=== PATIENT | male | born 1945 | race Caucasian/White ===

== ENCOUNTER 2021-06-15 16:05 | Emergency (ER) | payer MEDICARE, SELFPAY ==
[2021-06-15] VITALS (10 sets, daily range): BP systolic 184–214; BP diastolic 93–108; PULSE 78–85; RESP 18–25; TEMP 37.1; O2SAT 92–96
--- NOTE | 2021-06-15 16:15 | DI.RAD.S_ITS ---
PROCEDURE: XR CHEST 1V INDICATIONS: chest pain TECHNIQUE: One view of the chest was acquired. COMPARISON: None. FINDINGS: Surgical changes and devices: None. Lungs and pleura: Lungs are clear. No pleural effusions or pneumothorax. No focal consolidation or pulmonary mass. There is bibasilar atelectasis. Mediastinum: The heart is enlarged. The aorta is tortuous. Bones and chest wall: No suspicious bony lesions. Overlying soft tissues appear unremarkable. IMPRESSION: 1. Cardiomegaly. 2. Bibasilar atelectasis. Dictated by: Layton Tran M.D. on 06/15/2021 at 16:27 Approved by: Layton Tran M.D. on 06/15/2021 at 16:28
[2021-06-15 16:32] LABS: Add Manual Diff / Slide Review NO; Basophils Absolute Auto 0 /uL (0-100); Basophils Percent Auto 0.8 % (0-2); Eosinophils Absolute Auto 200 /uL (0-450); Eosinophils Percent Auto 4.2 % (2-4); Hematocrit 41.8 % (41-53); Hemoglobin 13.8 g/dL (13.5-17.5); Lymphocytes Absolute Auto 1200 /uL (1100-4500); Lymphocytes Percent Auto 21.3 % (25-40); Mean Corpuscular HGB Conc 33.1 % (30-36); Mean Corpuscular Hemoglobin 32.9 PG (26-34); Mean Corpuscular Volume 99.3 fL (80-100); Monocytes Absolute Auto 500 /uL (0-900); Monocytes Percent Auto 8.7 % (3-14); Neutrophils Absolute Auto 3800 /uL (1500-7000); Platelet Count 235 X10^3/uL (150-400); Red Blood Cell Count 4.21 X10^6/uL (4.5-5.9); Red Cell Distribution Width 14.6 % (11.6-14.8); White Blood Cell Count 5.8 X10^3/uL (4.5-11.0)
[2021-06-15 16:52] LABS: Alanine Aminotransferase 6 IU/L (<50); Albumin 4.3 g/dL (3.5-5.0); Albumin Globulin Ratio 1.7 (1.0-2.8); Alkaline Phosphatase 75 U/L (38-126); Aspartate Aminotransferase 20 IU/L (17-59); BUN Creatinine Ratio 24.8 (6-22); Bilirubin Total 0.5 mg/dL (0.2-1.3); Blood Urea Nitrogen 30 mg/dL (9-20); Calcium 8.7 mg/dL (8.4-10.2); Carbon Dioxide 22 mmol/L (22-32); Chloride 112 mmol/L (98-107); Creatine Kinase 42 U/L (55-170); Estimated Glomerular Filt Rate 58.1 mL/min (>60); Globulin 2.5 g/dL (1.7-4.1); Glucose 183 mg/dL (80-110); HEMOLYSIS 25 (0-50); Lipase 68 U/L (23-300); Potassium 4.5 mmol/L (3.4-5.1); Sodium 141 mmol/L (137-145); Total Protein 6.8 g/dL (6.3-8.2)
--- NOTE | 2021-06-15 16:54 | ED_ITS ---
HPI - Altered Mental Status <Jordin Gann PA-C - Last Filed: 06/16/21 12:10> General Chief Complaint: Hypertension Stated Complaint: low blood pressure, not feeling well Time Seen by Provider: 06/15/21 16:23 Source: patient Mode of arrival: Ambulatory History of Present Illness HPI narrative: Marvin presents today with chief complaint of increased weakness, fatigue, and elevated blood pressure that has been getting worse over the last 2 months. He has Parkinson's and frequently feels weak but this is worse than normal. He denies any recent dose adjustments for any of his medications or any new medications. However, 1 year ago he says that he self adjusted his blood pressure medication by cutting his losartan from 100 mg daily to 50 mg daily. He denies stopping any medications recently. He denies having increased shortness of breath with movement. He denies any chest pain, diaphoresis, nausea, vomiting, diarrhea, abdominal pain, for back pain, rash, headache, vision changes or any other acute concerns or complaints at this time. Related Data Allergies Allergy/AdvReac Type Severity Reaction Status Date / Time No Known Drug Allergies Allergy Verified 06/15/21 16:51 Review of Systems <Jordin Gann PA-C - Last Filed: 06/16/21 12:10> Review of Systems Narrative: As per HPI Exam <Jordin Gann PA-C - Last Filed: 06/16/21 12:10> Narrative Exam Narrative: Exam Narrative: Const General: cooperative, healthy appearing, comfortable, no acute distress, well developed and well groomed Nutritional Appearance: average body habitus Orientation: alert and oriented x3 HENMT Head: normal to inspection and atraumatic Ears: hearing grossly normal bilaterally Nose: external nose normal and nares normal Face and sinus: normal facial exam Neck Neck: normal visual inspection and supple Resp Effort & Inspection: normal respiratory effort, able to speak in complete sentences, no audible wheezes, not labored, no nasal flaring and no respiratory distress, clear to auscultation bilaterally Cardiac Regular rate, regular rhythm, no obvious murmur noted. GI Nondistended, nontender to palpation, normal bowel sounds No CVA tenderness Neuro General: alert, oriented x3, mildly ataxic gait, tone normal and moves all extremities Cognition: normal cognition Speech: speech normal Psych Appearance: grossly normal and well kempt Mental Status: mental status grossly normal Speech and Movement: speech normal, spastic upper and lower extremity movement noted. Mood: congruent mood Affect: normal affect Initial Vital Signs Initial Vital Signs: Vital Signs Temperature 98.7 F 06/15/21 16:10 Pulse Rate 82 06/15/21 16:10 Respiratory Rate 18 06/15/21 16:10 Blood Pressure 214/108 H 06/15/21 16:10 Pulse Oximetry 94 06/15/21 16:10 <Behzad Almaguer DO - Last Filed: 06/17/21 10:17> Initial Vital Signs Initial Vital Signs: Vital Signs Temperature 98.7 F 06/15/21 16:10 Pulse Rate 82 06/15/21 16:10 Respiratory Rate 18 06/15/21 16:10 Blood Pressure 214/108 H 06/15/21 16:10 Pulse Oximetry 94 06/15/21 16:10 Course <Jordin Gann PA-C - Last Filed: 06/16/21 12:10> Orders Ordered: ED Orders 06/15/21 16:15 XR chest 1V Stat EKG-12 Lead Stat 06/15/21 16:20 Thyroid Stimulating Hormone Stat 06/15/21 16:25 Complete Blood Count AUTO DIFF Stat Comprehensive Metabolic Panel Stat Lipase Stat NT-proBNP (BNP-Adult 18+) Stat Troponin & CK Cardiac Panel Stat 06/15/21 17:49 COVID19 -Nasal swab/Pre-Proc Stat Vital Signs Vital signs: Vital Signs - 8 hr 06/15/21 16:10 06/15/21 16:15 06/15/21 16:16 Temperature 98.7 F Pulse Rate 82 85 Respiratory Rate 18 24 Blood Pressure 214/108 H Pulse Oximetry 94 93 94 06/15/21 16:30 06/15/21 17:13 06/15/21 17:14 Temperature Pulse Rate 84 83 82 Respiratory Rate 24 22 25 H Blood Pressure 186/93 H 195/95 H Pulse Oximetry 94 94 95 06/15/21 17:30 06/15/21 17:49 06/15/21 18:00 Temperature Pulse Rate 84 79 78 Respiratory Rate 24 23 23 Blood Pressure 184/94 H 186/96 H Pulse Oximetry 96 94 92 06/15/21 18:30 Temperature Pulse Rate 79 Respiratory Rate 24 Blood Pressure Pulse Oximetry 94 <Behzad Almaguer DO - Last Filed: 06/17/21 10:17> Orders Ordered: ED Orders 06/15/21 16:15 XR chest 1V Stat EKG-12 Lead Stat 06/15/21 16:20 Thyroid Stimulating Hormone Stat 06/15/21 16:25 Complete Blood Count AUTO DIFF Stat Comprehensive Metabolic Panel Stat Lipase Stat NT-proBNP (BNP-Adult 18+) Stat Troponin & CK Cardiac Panel Stat 06/15/21 17:49 COVID19 -Nasal swab/Pre-Proc Stat Vital Signs Vital signs: Vital Signs - 8 hr 06/15/21 16:10 06/15/21 16:15 06/15/21 16:16 Temperature 98.7 F Pulse Rate 82 85 Respiratory Rate 18 24 Blood Pressure 214/108 H Pulse Oximetry 94 93 94 06/15/21 16:30 06/15/21 17:13 06/15/21 17:14 Temperature Pulse Rate 84 83 82 Respiratory Rate 24 22 25 H Blood Pressure 186/93 H 195/95 H Pulse Oximetry 94 94 95 06/15/21 17:30 06/15/21 17:49 06/15/21 18:00 Temperature Pulse Rate 84 79 78 Respiratory Rate 24 23 23 Blood Pressure 184/94 H 186/96 H Pulse Oximetry 96 94 92 06/15/21 18:30 Temperature Pulse Rate 79 Respiratory Rate 24 Blood Pressure Pulse Oximetry 94 MDM - Altered Mental Status <Jordin Gann PA-C - Last Filed: 06/16/21 12:10> Lab Data Result diagrams: 06/15/21 16:25 06/15/21 16:25 Labs: Lab Results 06/15/21 06/15/21 06/15/21 Range/Units 16:20 16:25 16:25 WBC 5.8 (4.5-11.0) X10^3/uL RBC 4.21 L (4.5-5.9) X10^6/uL Hgb 13.8 (13.5-17.5) g/dL Hct 41.8 (41-53) % MCV 99.3 (80-100) fL MCH 32.9 (26-34) PG MCHC 33.1 (30-36) % RDW 14.6 (11.6-14.8) % Plt Count 235 (150-400) X10^3/uL Neut % (Auto) 65.0 (50-75) % Lymph % (Auto) 21.3 L (25-40) % [place] % (Auto) 8.7 (3-14) % Eos % (Auto) 4.2 H (2-4) % Baso % (Auto) 0.8 (0-2) % Neut # (Auto) 3800 (9653-4574) /uL Lymph # (Auto) 1200 (5691-1548) /uL [place] # (Auto) 500 (0-900) /uL Eos # (Auto) 200 (0-450) /uL Baso # (Auto) 0 (0-100) /uL Sodium 141 (137-145) mmol/L Potassium 4.5 (3.4-5.1) mmol/L Chloride 112 H (98-107) mmol/L Carbon Dioxide 22 (22-32) mmol/L BUN 30 H (9-20) mg/dL Creatinine 1.21 (0.66-1.25) mg/dL Estimated GFR 58.1 L (>60) mL/min BUN/Creatinine Ratio 24.8 H (6-22) Glucose 183 H (80-110) mg/dL Calcium 8.7 (8.4-10.2) mg/dL Total Bilirubin 0.5 (0.2-1.3) mg/dL AST 20 (17-59) IU/L ALT 6 (<50) IU/L Alkaline Phosphatase 75 (38-126) U/L Total Creatine Kinase 42 L (55-170) U/L CK-MB (CK-2) TNP CK-MB (CK-2) Rel Index TNP Troponin I < 0.012 (0.01-0.034) ng/mL NT-Pro-B Natriuret Pep (<450) pg/mL Total Protein 6.8 (6.3-8.2) g/dL Albumin 4.3 (3.5-5.0) g/dL Globulin 2.5 (1.7-4.1) g/dL Albumin/Globulin Ratio 1.7 (1.0-2.8) Lipase 68 (23-300) U/L TSH 1.76 (0.47-4.68) uIU/mL SARS-CoV-2 (PCR) (Negative) 06/15/21 06/15/21 Range/Units 16:25 17:49 WBC (4.5-11.0) X10^3/uL RBC (4.5-5.9) X10^6/uL Hgb (13.5-17.5) g/dL Hct (41-53) % MCV (80-100) fL MCH (26-34) PG MCHC (30-36) % RDW (11.6-14.8) % Plt Count (150-400) X10^3/uL Neut % (Auto) (50-75) % Lymph % (Auto) (25-40) % [place] % (Auto) (3-14) % Eos % (Auto) (2-4) % Baso % (Auto) (0-2) % Neut # (Auto) (7895-7366) /uL Lymph # (Auto) (0949-8891) /uL [place] # (Auto) (0-900) /uL Eos # (Auto) (0-450) /uL Baso # (Auto) (0-100) /uL Sodium (137-145) mmol/L Potassium (3.4-5.1) mmol/L Chloride (98-107) mmol/L Carbon Dioxide (22-32) mmol/L BUN (9-20) mg/dL Creatinine (0.66-1.25) mg/dL Estimated GFR (>60) mL/min BUN/Creatinine Ratio (6-22) Glucose (80-110) mg/dL Calcium (8.4-10.2) mg/dL Total Bilirubin (0.2-1.3) mg/dL AST (17-59) IU/L ALT (<50) IU/L Alkaline Phosphatase (38-126) U/L Total Creatine Kinase (55-170) U/L CK-MB (CK-2) CK-MB (CK-2) Rel Index Troponin I (0.01-0.034) ng/mL NT-Pro-B Natriuret Pep 682 H (<450) pg/mL Total Protein (6.3-8.2) g/dL Albumin (3.5-5.0) g/dL Globulin (1.7-4.1) g/dL Albumin/Globulin Ratio (1.0-2.8) Lipase (23-300) U/L TSH (0.47-4.68) uIU/mL SARS-CoV-2 (PCR) Negative (Negative) Urine Dip Bedside Urine Glucose Negative Bedside Urine Bilirubin - Negative Bedside Urine Ketone - Negative Urine Specific [place] 1.020 Bedside Urine Occult Blood - Negative Bedside Urine pH 6.0 Bedside Urine Protein + 30 Bedside Urine Urobilinogen - Negative Bedside Urine Nitrite - Negative Bedside Urine Leukocytes - Negative Esterase MDM Narrative Medical decision making narrative: Patient is well-appearing at this time. His laboratory evaluation is reassuring. No acute findings were noted on evaluation. No evidence of infection, no focal neurologic deficits. He denies any significant headache, vision changes, chest pain, shortness of breath. He is noted to be hypertensive but there is no obvious evidence of end-organ damage at this time. Recommend going back to his previously prescribed dose of his losartan and following up with his PCP. Strict ER return precautions were discussed with the patient and his . Patient verbalizes understanding and agrees to plan and has no further concerns at this time. Thank you A [id number] system was used with the dictation of this note. Please disregard any spelling or grammatical errors. <Behzad Almaguer, DO - Last Filed: 06/17/21 10:17> Lab Data Labs: Lab Results 06/15/21 06/15/21 06/15/21 Range/Units 16:20 16:25 16:25 WBC 5.8 (4.5-11.0) X10^3/uL RBC 4.21 L (4.5-5.9) X10^6/uL Hgb 13.8 (13.5-17.5) g/dL Hct 41.8 (41-53) % MCV 99.3 (80-100) fL MCH 32.9 (26-34) PG MCHC 33.1 (30-36) % RDW 14.6 (11.6-14.8) % Plt Count 235 (150-400) X10^3/uL Neut % (Auto) 65.0 (50-75) % Lymph % (Auto) 21.3 L (25-40) % [place] % (Auto) 8.7 (3-14) % Eos % (Auto) 4.2 H (2-4) % Baso % (Auto) 0.8 (0-2) % Neut # (Auto) 3800 (9617-3294) /uL Lymph # (Auto) 1200 (2921-2288) /uL [place] # (Auto) 500 (0-900) /uL Eos # (Auto) 200 (0-450) /uL Baso # (Auto) 0 (0-100) /uL Sodium 141 (137-145) mmol/L Potassium 4.5 (3.4-5.1) mmol/L Chloride 112 H (98-107) mmol/L Carbon Dioxide 22 (22-32) mmol/L BUN 30 H (9-20) mg/dL Creatinine 1.21 (0.66-1.25) mg/dL Estimated GFR 58.1 L (>60) mL/min BUN/Creatinine Ratio 24.8 H (6-22) Glucose 183 H (80-110) mg/dL Calcium 8.7 (8.4-10.2) mg/dL Total Bilirubin 0.5 (0.2-1.3) mg/dL AST 20 (17-59) IU/L ALT 6 (<50) IU/L Alkaline Phosphatase 75 (38-126) U/L Total Creatine Kinase 42 L (55-170) U/L CK-MB (CK-2) TNP CK-MB (CK-2) Rel Index TNP Troponin I < 0.012 (0.01-0.034) ng/mL NT-Pro-B Natriuret Pep (<450) pg/mL Total Protein 6.8 (6.3-8.2) g/dL Albumin 4.3 (3.5-5.0) g/dL Globulin 2.5 (1.7-4.1) g/dL Albumin/Globulin Ratio 1.7 (1.0-2.8) Lipase 68 (23-300) U/L TSH 1.76 (0.47-4.68) uIU/mL SARS-CoV-2 (PCR) (Negative) 06/15/21 06/15/21 Range/Units 16:25 17:49 WBC (4.5-11.0) X10^3/uL RBC (4.5-5.9) X10^6/uL Hgb (13.5-17.5) g/dL Hct (41-53) % MCV (80-100) fL MCH (26-34) PG MCHC (30-36) % RDW (11.6-14.8) % Plt Count (150-400) X10^3/uL Neut % (Auto) (50-75) % Lymph % (Auto) (25-40) % [place] % (Auto) (3-14) % Eos % (Auto) (2-4) % Baso % (Auto) (0-2) % Neut # (Auto) (8334-0736) /uL Lymph # (Auto) (6685-7049) /uL [place] # (Auto) (0-900) /uL Eos # (Auto) (0-450) /uL Baso # (Auto) (0-100) /uL Sodium (137-145) mmol/L Potassium (3.4-5.1) mmol/L Chloride (98-107) mmol/L Carbon Dioxide (22-32) mmol/L BUN (9-20) mg/dL Creatinine (0.66-1.25) mg/dL Estimated GFR (>60) mL/min BUN/Creatinine Ratio (6-22) Glucose (80-110) mg/dL Calcium (8.4-10.2) mg/dL Total Bilirubin (0.2-1.3) mg/dL AST (17-59) IU/L ALT (<50) IU/L Alkaline Phosphatase (38-126) U/L Total Creatine Kinase (55-170) U/L CK-MB (CK-2) CK-MB (CK-2) Rel Index Troponin I (0.01-0.034) ng/mL NT-Pro-B Natriuret Pep 682 H (<450) pg/mL Total Protein (6.3-8.2) g/dL Albumin (3.5-5.0) g/dL Globulin (1.7-4.1) g/dL Albumin/Globulin Ratio (1.0-2.8) Lipase (23-300) U/L TSH (0.47-4.68) uIU/mL SARS-CoV-2 (PCR) Negative (Negative) Urine Dip Bedside Urine Glucose Negative Bedside Urine Bilirubin - Negative Bedside Urine Ketone - Negative Urine Specific [place] 1.020 Bedside Urine Occult Blood - Negative Bedside Urine pH 6.0 Bedside Urine Protein + 30 Bedside Urine Urobilinogen - Negative Bedside Urine Nitrite - Negative Bedside Urine Leukocytes - Negative Esterase Discharge Plan Departure Patient Disposition: Home Clinical Impression: Hypertension Qualifiers: Hypertension type: unspecified Qualified Code(s): I10 - Essential (primary) hypertension Fatigue Qualifiers: Fatigue type: unspecified Qualified Code(s): R53.83 - Other fatigue Instructions: DI for High Blood Pressure Activity Restrictions/Additional Instructions: It was very nice to meet you both this evening. Please resume your losartan dose at 100 mg daily as previously prescribed. Recommend keeping a log of your blood pressures daily and presenting those to your primary care provider. Please call your PCP tomorrow to schedule a follow-up appointment as soon as possible. If you experience chest pain, lightheadedness, dizziness, significant headache, vision changes or have any other acute concerns or complaints do not hesitate to return for re-evaluation. Thank you Jordin Gann PA-C <Behzad Almaguer DO - Last Filed: 06/17/21 10:17> [facility] ED Attending Cosignature Attestation: I was immediately available in the department for consultation. This documentation has been reviewed and I agree with assessment and plan. Supervised by Behzad Almaguer DO
[2021-06-15 17:04] LABS: Troponin I < 0.012 ng/mL (0.01-0.034)
[2021-06-15 17:26] LABS: NT-proBNP (BNP-Adult 18+) 682 pg/mL (<450)
[2021-06-15 18:20] LABS: Thyroid Stimulating Hormone 1.76 uIU/mL (0.47-4.68)
[2021-06-15 18:23] LABS: COVID19 -Nasal RAPID Negative (Negative)
== END 2021-06-15 18:58 | disposition home or self-care (01) ==
PROVIDERS: Emergency Medicine; Emergency Provider Physician Assistant
DX: I10 Essential (primary) hypertension (principal); R53.83 Other fatigue; R07.9 Chest pain, unspecified; Z20.822 Contact with and (suspected) exposure to COVID-19
CPT/HCPCS: 36415; 71045; 80053; 81003; 82550; 83690; 83880; 84443; 84484; 85025; 87635; 93005; 99283; 99284; C9803

== ENCOUNTER 2022-06-02 07:48 | Emergency (ER) | payer MEDICARE, SELFPAY ==
[2022-06-02] VITALS (9 sets, daily range): BP systolic 176–185; BP diastolic 85–87; PULSE 63–73; RESP 18; TEMP 36.4; O2SAT 95–99; BMI 31.8
--- NOTE | 2022-06-02 07:59 | ED_ITS ---
HPI - General Adult General Chief complaint: Fall Stated complaint: GLF- can't put pressure on right leg Time Seen by Provider: 06/02/22 07:49 Source: patient Mode of arrival: Family Vehicle Limitations: no limitations History of Present Illness HPI narrative: 77-year-old male. History of Parkinson's disease. Is here for evaluation of injuries he sustained after he fell last evening just over 12 hours ago. He is unsure exactly how he fell however patient states he just lost his balance. This has happened in the past secondary to his Parkinson's disease. He did sustain an injury to his right knee. No other injuries from the event. He was able to walk yesterday afterwards with some discomfort however this morning he is having more discomfort day now swelling in his knee Related Data Allergies Allergy/AdvReac Type Severity Reaction Status Date / Time No Known Drug Allergies Allergy Verified 06/02/22 08:19 Review of Systems Constitutional Constitutional: Reports system reviewed and no additional complaints, except as documented Musculoskeletal Musculoskeletal: Reports system reviewed and no additional complaints, except as documented Integumentary/Breasts Skin/Breast: Reports system reviewed and no additional complaints, except as documented Neurologic Neurologic: Reports system reviewed and no additional complaints, except as documented Patient History Medical History Parkinsons disease Social History marital status: lives independently: Yes Smoking Status: Never smoker Exam Initial Vital Signs Initial Vital Signs: Vital Signs Pulse Rate 71 06/02/22 07:57 Pulse Oximetry 98 06/02/22 07:57 Const General: cooperative HENMT Head: normal to inspection and normocephalic Resp Effort & Inspection: normal respiratory effort Skin General: no rashes or lesions noted Neuro General: patient alert and patient awake Extrem Other: No right hip pain. No right ankle pain. Patient does have an effusion to his right knee. No tenderness along the hamstring tendon. He does have tenderness along the mediolateral joint line. Difficult for him to flex and extend secondary to the fusion. Course Orders Ordered: ED Orders 06/02/22 07:59 XR knee RT 3V Stat Vital Signs Vital signs: Vital Signs - 8 hr 06/02/22 07:58 06/02/22 07:57 06/02/22 08:00 Temperature 97.6 F Pulse Rate 71 71 70 Respiratory Rate 18 Blood Pressure 176/85 H Pulse Oximetry 99 98 98 Oxygen Delivery Method Room Air 06/02/22 08:01 06/02/22 08:01 06/02/22 08:27 Temperature Pulse Rate 71 73 Respiratory Rate Blood Pressure 176/85 H Pulse Oximetry 97 97 Oxygen Delivery Method 06/02/22 08:30 06/02/22 08:39 Temperature Pulse Rate 66 Respiratory Rate Blood Pressure 185/85 H Pulse Oximetry 97 Oxygen Delivery Method Medical Decision Making Imaging Data Extremity x-ray #1: Radiologist's Impression: [address] [address] XRay Report Signed Patient: Marvin Quesada MR#: [id number] : 1945 Acct:[id number] Age/Sex: 77 / M Date of Service: 06/02/22 Loc: ED Accession Number: [id number] ?? Procedure: XR knee RT 3V Ordering Provider: Derrick Dale D.O. PROCEDURE:? XR KNEE RT 3V ? INDICATIONS:? pain and swelling after fall ? TECHNIQUE:? 3 views of the knee were acquired.? ? COMPARISON:? None. ? FINDINGS:? ? Bones:? No fractures or dislocations.? Severe joint space narrowing at the medial compartment.? Tricompartmental osteophytosis.? No suspicious bony lesions.? ? Soft tissues:? Large joint effusion.? No suspicious soft tissue calcifications.? ? IMPRESSION:? No acute osseous abnormality.? Large joint effusion. ? 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 ? Dictated by: Jason Abdi M.D. on 06/02/2022 at 8:36 ? ? Approved by: Jason Abdi M.D. on 06/02/2022 at 8:37 MDM Narrative Medical decision making narrative: No fractures were noted on the x-rays. Apparently the patient has started a new medicine called Ongentys supplement to his carbidopa levodopa. He feels that maybe after starting this medication his dizziness and lightheaded this has worsened. Advised that he stop taking this medicine and contact his neurologist for follow-up. No further workup required in the emergency department. We did discuss the results of the x-rays. He was given return precautions. He expressed understanding and agreement. Discharge Plan Departure Patient Disposition: Home Clinical Impression: Effusion of knee joint right Instructions: How To Perform RICE (Rest, Ice, Compress, Elevate), DI for Knee Effusion Activity Restrictions/Additional Instructions: There were no fractures noted on the x-rays. I do recommend that you keep your knee elevated and keep ice over the area. You can walk on your knee as tolerated. Contact your neurologist for follow-up. Return to the emergency department for any new or worsening symptoms. Referrals: Thom Mcintosh MD [Primary Care Provider] -
--- NOTE | 2022-06-02 07:59 | DI.RAD.S_ITS ---
PROCEDURE: XR KNEE RT 3V INDICATIONS: pain and swelling after fall TECHNIQUE: 3 views of the knee were acquired. COMPARISON: None. FINDINGS: Bones: No fractures or dislocations. Severe joint space narrowing at the medial compartment. Tricompartmental osteophytosis. No suspicious bony lesions. Soft tissues: Large joint effusion. No suspicious soft tissue calcifications. IMPRESSION: No acute osseous abnormality. Large joint effusion. 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 Dictated by: Jason Abdi M.D. on 06/02/2022 at 8:36 Approved by: Jason Abdi M.D. on 06/02/2022 at 8:37
== END 2022-06-02 09:19 | disposition home or self-care (01) ==
PROVIDERS: Emergency Provider Emergency Medicine; PCP Family Medicine
DX: M25.461 Effusion, right knee (principal); G20 Parkinson's disease; W19.XXXA Unspecified fall, initial encounter
CPT/HCPCS: 73562; 99281; 99283

== ENCOUNTER → 2022-09-09 10:19 | Outpatient (CLI) | payer MEDICARE, SELFPAY ==
--- NOTE | 2022-09-09 10:20 | DI.MRI.S_ITS ---
PROCEDURE: MR KNEE RT WO CON INDICATIONS: RIGHT KNEE PAIN TECHNIQUE: Noncontrast sagittal PD fast spin echo and T2 fast spin echo with fat saturation, sagittal 3-D FLASH with fat saturation; coronal T1 spin echo and PD fast spin echo with fat saturation, and axial PD fast spin echo with fat saturation through the knee. COMPARISON: [facility], CR, XR KNEE RT 3V, 06/02/2022, 7:58. FINDINGS: Image quality: Excellent. Anterior Cruciate Ligament: Mild mucoid degeneration of the anterior cruciate ligament. Posterior Cruciate Ligament: Intact. Medial Collateral Ligament: Intact. Lateral Collateral Ligament: Intact. Medial Meniscus: There is a diminutive appearance of the medial meniscus consistent with diffuse degenerative tearing and maceration. Lateral Meniscus: Shallow radial tearing at the free edge margin of the body of the lateral meniscus. Possible parameniscal cyst versus loculated joint fluid along the nonarticular margin of the lateral meniscus at the anterior horn and body. Medial and Lateral Tendons: The semimembranosus tendon insertions and meniscocapsular junction appear intact. Visualized portions of the pes anserinus tendons appear normal. No abnormal bursal fluid. The long and short heads of the biceps femoris tendon appear intact. The popliteus tendon appears intact. No signs of posterolateral corner injury. Iliotibial band appears normal. Anterior Structures: Mild patellar tendinosis. The distal quadriceps tendon is intact.. No patellar subluxation. No femoral trochlear dysplasia or ventral trochlear prominence. No edema in the infrapatellar fat pad. Bones: No acute trabecular bone injury or fracture. Medial Femorotibial Cartilage: Diffuse full-thickness cartilage loss is seen throughout the weight-bearing portion of the medial femorotibial compartment with subchondral edema and marginal osteophyte formation. The medial tibial plateau articular surface appears chronically remodeled. Lateral Femorotibial Cartilage: High-grade partial-thickness cartilage loss in the central to posterior weight-bearing portion of the medial femoral condyle with small marginal osteophytes. Patellofemoral Cartilage: Moderate grade partial-thickness cartilage thinning and irregularity at the lateral facet and median ridge of the patella as well as the lateral femoral trochlea with subchondral cystic changes and marginal osteophyte formation. Soft Tissues: Moderate knee joint effusion is present with mild synovial hypertrophy. There is a trace medial popliteal cyst. A moderate amount of fluid is seen tracking along the popliteus tendon sheath. The musculature surrounding the knee is normal in bulk. IMPRESSION: 1. 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 There is grade 3 chondromalacia in the lateral compartment and grade 2-3 chondromalacia in the anterior compartment. Tricompartmental marginal osteophytes are present. 2. Diffuse degenerative tearing and maceration of the medial meniscus with extrusion of the meniscal body beyond the femorotibial joint line. 3. Shallow radial tearing of the free edge margin of the body of the lateral meniscus. Possible parameniscal cyst versus loculated joint fluid along the anterior horn and body. 4. Mild mucoid degeneration of the anterior cruciate ligament. 5. Mild patellar tendinosis. 6. Moderate joint effusion. Trace medial and moderate lateral popliteal cysts. Approved by: Jamar Yu M.D. on 09/12/2022 at 12:22
== END ==
PROVIDERS: PCP Family Medicine; Referring Provider Pain Medicine Pain Medicine; Visit Provider Pain Medicine Pain Medicine
DX: S83.241A Other tear of medial meniscus, current injury, right knee, initial encounter (principal); S83.281A Other tear of lateral meniscus, current injury, right knee, initial encounter; M17.11 Unilateral primary osteoarthritis, right knee; M94.261 Chondromalacia, right knee; M25.561 Pain in right knee; M25.461 Effusion, right knee
CPT/HCPCS: 73721